=== PATIENT | male | born 1940 | race Caucasian/White ===

== ENCOUNTER 2017-04-17 17:13 | Emergency (ER) | payer OTHER ==
[2017-04-17] MEDS ORDERED: Enoxaparin Sodium 100 MG/ML SYRINGE ONE (17:25)
[2017-04-17] MEDS ORDERED: Nitroglycerin 0.4 MG TAB (25 Tab Bottle) ONE (17:25)
[2017-04-17] MEDS ORDERED: Metoprolol Tartrate 5 MG/5 ML VIAL ONE ×3 (17:25→19:17)
[2017-04-17 17:39] LABS: #Basophils 0.1 thou/uL (0.0-0.2); #Eosinphils 0.2 thou/uL (0.0-0.7); #Lymphocytes 1.7 thou/uL (1.20-3.40); #Monocytes 1.1 thou/uL (0.11-0.59); #Neutrophils 11.2 thou/uL (1.40-6.50); %Basophils 0.4 % (0.0-1.0); %Eosinophils 1.4 % (0.0-10.0); %Monocytes 7.5 % (0.0-10.0); %Neutrophils 78.8 % (42.0-75.0); Hemoglobin 14.3 g/dL (14.0-18.0); Mean Corpuscular HGB CONC 34.2 g/dL (32.0-36.0); Mean Corpuscular Hemoglobin 29.5 pg (27.0-31.0); Mean Corpuscular Volume 86.3 fl (80.0-94.0); Mean Platelet Volume 6.7 fL (7.4-10.4); Platelet Count 326 thou/uL (130-400); RBC Distribution Width 12.3 % (11.5-14.5); Red Blood Cell (RBC) Count 4.84 mill/uL (4.70-6.10); White Blood Cell (WBC) Count 14.2 thou/uL (4.8-10.8)
[2017-04-17 17:46] LABS: ALT (SGPT) 23 U/L (8-55); AST (SGOT) 15 U/L (5-34); Albumin 4.3 g/dL (3.4-4.8); Alkaline Phosphatase 67 U/L (40-150); Anion Gap 17 mmol/L (10-20); BUN (Urea Nitrogen) 24 mg/dL (8.4-25.7); Bilirubin, Total 0.5 mg/dL (0.2-1.2); Calc. Creatinine Clearance 0 mL/min (70-130); Carbon Dioxide 27 mmol/L (23-31); Chloride 97 mmol/L (98-107); Estimated GFR-MDRD 63; Globulin 3.7 g/dL (2.4-3.5); Glucose 184 mg/dL (83-110); Lipase 36 U/L (8-78); Potassium 3.2 mmol/L (3.5-5.1); Sodium 138 mmol/L (136-145)
[2017-04-17] MEDS ORDERED: Acetaminophen 500 MG TAB ONE (17:47)
[2017-04-17 17:48] LABS: CKMB 2.5 ng/mL (0-6.6); Troponin I Less than 0.010 ng/mL (< 0.028)
[2017-04-17] MEDS ORDERED: Fentanyl 100 MCG/2 ML VIAL ONE (19:16)
[2017-04-17] MEDS ORDERED: Nitroglycerin 2% Ointment 1 INCH/1 GM Packet ONE (19:17)
[2017-04-17] MEDS ORDERED: Potassium Chloride 20 MEQ TAB ONE (19:17)
--- NOTE | 2017-04-17 21:56 | RAD ---
PORTABLE CHEST 04/17/17 An portable film at 1716 is presented with no prior films available for comparison. There are numerous hazy densities around the periphery o the lungs consistent with large plaques of a sbestos exposure. No focal infiltrates or large effusions were seen. See CT report to follow. IMPRESSION: Numerous pleural based masses consistent with asbestos exposure. See CT report to fall. POS: HOME
--- NOTE | 2017-04-17 22:21 | CT ---
CT ANGIO OF THE CHEST WITH CONTRAST 04/17/[address] of the chest was performed after a bolus of IV contrast. Slices were acquired, then oblique coronal and coronal reconstructions were obtained. There is good opacification of the pulmonary arterial system. No filling defects were seen to suggest emboli. Small emboli distal vessel would be missed. Flow artifact is seen in some of the pulmonary v eins, particularly going to the right upper lobe. The aorta shows no aneurysm or dissection. Some mary carmen cification is seen in the aorta and coronary vessels but it is not excessive. There are no pericardia l effusions. 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 Some of these are quite large measuring easily 8+ cm in length. Several are over 2 cm thick. 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 No loba r consolidation, effusion, or focal pulmonary infiltrate was appreciated. The mediastinum showed no mass or significant adenopathy. Degenerative changes are seen in the spine. A few slices went into the upper abdomen which showed no acute changes there. IMPRESSION: 1. No evidence for pulmonary embolism. 2. Diffuse severe changes of asbestos exposure with very large, thick pleural plaques bilaterall y. The large mature in lumpy configuration of several of them raises some concern about neoplastic tr ansformation such as mesothelioma. As diffuse as the findings are, it is probably still more likely j ust all asbestosis. Nevertheless, I would strongly recommend referral to a pulmonary physician for de termination if and what further followup might be needed. Findings and recommendations discussed with Dr. De Los Santos at 1856 on 04/17/17. POS: HOME
== END 2017-04-17 19:30 | disposition short-term general hospital (02) ==
LOC: BURERS 17:13
DX: J61 Pneumoconiosis due to asbestos and other mineral fibers (principal); E11.9 Type 2 diabetes mellitus without complications; E78.5 Hyperlipidemia, unspecified; I10 Essential (primary) hypertension; Z87.891 Personal history of nicotine dependence
CPT/HCPCS: 71010; 71275; 80053; 82553; 83690; 84484; 85025; 85379; 93005; 94760; 96372; 96374; 96376; J1650; J3010